=== PATIENT | male | born 1975 ===

== ENCOUNTER → 2018-12-07 21:20 | Outpatient (REF) | payer BC, SELFPAY ==
[2018-12-07 21:45] LABS: Add Manual Diff / Slide Review NO; Basophils Absolute Auto 0 /uL (0-100); Basophils Percent Auto 0.6 % (0-2); Eosinophils Absolute Auto 100 /uL (0-450); Eosinophils Percent Auto 1.7 % (2-4); Hematocrit 41.8 % (41-53); Hemoglobin 14.6 g/dL (13.5-17.5); Lymphocytes Absolute Auto 1900 /uL (1100-4500); Lymphocytes Percent Auto 33.2 % (25-40); Mean Corpuscular HGB Conc 34.9 % (30-36); Mean Corpuscular Hemoglobin 32.1 PG (26-34); Monocytes Absolute Auto 500 /uL (0-900); Monocytes Percent Auto 8.1 % (3-14); Neutrophils Absolute Auto 3200 /uL (1500-7000); Neutrophils Percent Auto 56.4 % (50-75); Platelet Count 325 X10^3/uL (150-400); Red Blood Cell Count 4.54 X10^6/uL (4.5-5.9); Red Cell Distribution Width 12.8 % (11.6-14.8); White Blood Cell Count 5.7 X10^3/uL (4.5-11.0)
[2018-12-07 21:56] LABS: HEMOLYSIS < 15 (0-50)
[2018-12-07 22:01] LABS: Alanine Aminotransferase 25 IU/L (21-72); Albumin 4.6 g/dL (3.5-5.0); Albumin Globulin Ratio 1.5 (1.0-2.8); Alkaline Phosphatase 95 U/L (38-126); Aspartate Aminotransferase 19 IU/L (17-59); BUN Creatinine Ratio 22.2 (6-22); Bilirubin Total 0.4 mg/dL (0.2-1.3); Blood Urea Nitrogen 20 mg/dL (9-20); Calcium 9.9 mg/dL (8.4-10.2); Carbon Dioxide 30 mmol/L (22-32); Chloride 102 mmol/L (98-107); Cholesterol 159 mg/dL (140-199); Estimated Glomerular Filt Rate > 60.0 mL/min (>60); Globulin 3.1 g/dL (1.7-4.1); Glucose 87 mg/dL (70-100); HDL Cholesterol 28 mg/dL (40-60); LDL Cholesterol Calculated 67 mg/dL (<100); Potassium 4.7 mmol/L (3.4-5.1); Sodium 142 mmol/L (137-145); Total Protein 7.7 g/dL (6.3-8.2); Triglycerides 321 mg/dL (35-150)
[2018-12-07 22:13] LABS: Vitamin D 25 Hydroxy (D3) 28.1 ng/mL (30.0-100.0)
[2018-12-07 22:26] LABS: Thyroid Stimulating Hormone 2.09 uIU/mL (0.47-4.68)
[2018-12-07 23:20] LABS: Erythrocyte Sedimentation Rate 8 MM/HR (0-15)
[2018-12-08 04:23] LABS: Rheumatoid Factor < 8.6 IU/mL (<12.0)
[2018-12-10 18:35] LABS: ANA Screen, IFA Negative (Negative)
[2018-12-11 11:52] LABS: CCP Antibody (IgG) < 16 Units (< 20)
== END ==
LOC: LAB 21:20
PROVIDERS: Visit Provider Family Medicine
DX: Z00.00 Encounter for general adult medical examination without abnormal findings (principal); Z13.1 Encounter for screening for diabetes mellitus; Z13.220 Encounter for screening for lipoid disorders
CPT/HCPCS: 36415; 80053; 80061; 82306; 83036; 83516; 84443; 85025; 85651; 86038; 86430